=== PATIENT | female | born 1985 | race Caucasian/White ===

== ENCOUNTER 2022-10-15 10:50 | Observation (INO) | payer SELFPAY ==
[~2022-10-15] VITALS: Ht 165.1 cm; Wt 68.6 kg
[~2022-10-15 10:50] MED LIST: ANTIBIOTIC; CEFTIN 250250 MG/TAB PO; CEPHALEXIN500 M1 PO; CIPRO 500MG TA500 MG PO; LORTAB 5/500 501 TAB; MACRODANTIN50 MG PO; NORCO 325 MG-51 TAB PO; PERCOCET 5/321 UDTAB PO; PHENERGAN 25 TA25 MG PO; PREDNISONE20 MG PO; TYLENOL #3 301 UDTAB PO; ZANTAC 150150 MG PO; ZOFRAN ODT4 MG PO
[2022-10-15 11:37] LABS: COLLECTION METHOD CLEAN CATCH
[2022-10-15 11:51] LABS: MUCOUS Present (NOT PRESENT); URINE APPEARANCE Clear (CLEAR/HAZY); URINE BACTERIA Occasional /hpf (NONE SEEN); URINE COLOR Yellow (YELLOW)
[2022-10-15 11:52] LABS: PH 6.5 (5.0-8.5); URINE BLOOD 1+ (NEGATIVE); URINE GLUCOSE Negative (NEGATIVE); URINE KETONE 2+ (NEGATIVE); URINE NITRATE Positive (NEGATIVE); URINE PROTEIN(semi-quant) 2+ (NEGATIVE)
[2022-10-15 12:23] LABS: HEMOGLOBIN 13.1 g/dl (12.5-16.0); MEAN CELL VOLUME 91 fl (80.0-100.0); MEAN CORPUSCULAR HEMOGLOBIN 30 pg (27-31); MEAN CORPUSCULAR HGB CONC 34 g/dl (33.0-37.0); MEAN PLATELET VOLUME 10.2 fl (7.4-10.4); PLATELET COUNT 243 K/mm3 (130-400); RED BLOOD COUNT 4.31 M/mm3 (4.10-5.30); REDCELL DISTRIBUTION WIDTH-CV 13.8 % (11.5-14.5)
[2022-10-15 12:33] LABS: ALBUMIN 3.2 gm/dL (3.5-5.0); BILIRUBIN,TOTAL 1.6 mg/dL (0.2-1.2); C-REACTIVE PROTEIN 29.08 mg/dL (0.00-0.50); CALCIUM 9.6 mg/dL (8.4-10.2); CREATININE, serum 0.74 mg/dL (0.57-1.11); POTASSIUM 4.1 mmol/L (3.5-4.5); TOTAL PROTEIN 7.3 gm/dL (6.2-8.1)
[2022-10-15 12:34] LABS: BAND 9 % (0-10); EOSINOPHIL 1 % (0-4); LYMPHOCYTE 9 % (20.0-51.0); NEUTROPHILS 74 % (42.0-75.2); PLATELET ESTIMATE NORMAL (NORMAL)
[2022-10-15] MEDS ORDERED: TYLENOL 500MG500 MG PO (16:26)
[2022-10-15 16:50] VITALS: BP 117/63; PULSE 100; TEMP 102.9
--- NOTE | 2022-10-15 17:50 | NUR ---
PATIENT ADMITTED TO ROOM 306 FROM ED. UPON ARRIVAL, PATIENT NOTED TO BE CRYING AND STATES SHE IS HAVING SEVERE PAIN. IV MORPHINE GIVEN PER ORDER, WHICH PATIENT STATES HELPED WITH HER PAIN. PATIENT IS ALERT AND ORIENTED X4. LUNGS CTA. FEBRILE, DR. BAIG UPDATED, NEW ORDER RECEIVED FOR APAP. ON NS AND LEVAQUIN, TOLERATING WELL. ORIENTED TO ROOM AND CALL LIGHT, DENIES FURTHER NEEDS. CALL LIGHT IN REACH.
--- NOTE | 2022-10-15 19:03 | NUR ---
PATIENT STATES SHE IS A FAITH, STATES SHE CAN RECEIVE SOME BLOOD PRODUCTS BUT NOT ALL, STATES SHE IS UNSURE OF WHAT SHE IS COMFORTABLE RECEIVING AND WILL LET STAFF KNOW HER PREFERENCES SOON. TIMOTHY RN UPDATED.
[2022-10-15 19:15] VITALS: BP 97/59; PULSE 90; TEMP 98.8
[2022-10-15 23:49] VITALS: BP 94/60; PULSE 82; TEMP 98.5
[2022-10-16 03:10] VITALS: BP 99/60; PULSE 95; TEMP 99.5
[2022-10-16 07:17] VITALS: BP 103/54; PULSE 95; TEMP 100.9
[2022-10-16 08:33] LABS: HEMOGLOBIN 11.3 g/dl (12.5-16.0); MEAN CELL VOLUME 90 fl (80.0-100.0); MEAN CORPUSCULAR HEMOGLOBIN 30 pg (27-31); MEAN CORPUSCULAR HGB CONC 33 g/dl (33.0-37.0); MEAN PLATELET VOLUME 9.6 fl (7.4-10.4); PLATELET COUNT 240 K/mm3 (130-400); RED BLOOD COUNT 3.75 M/mm3 (4.10-5.30); REDCELL DISTRIBUTION WIDTH-CV 14.2 % (11.5-14.5)
[2022-10-16 08:48] LABS: HEMATOCRIT 33.9 % (37.0-47.0)
[2022-10-16 09:01] LABS: ALBUMIN 2.5 gm/dL (3.5-5.0); CALCIUM 8.7 mg/dL (8.4-10.2); CREATININE, serum 0.68 mg/dL (0.57-1.11); MAGNESIUM 1.8 mg/dL (1.6-2.6); PHOSPHOROUS 3.1 mg/dL (2.3-4.7); POTASSIUM 3.7 mmol/L (3.5-4.5)
[2022-10-16 09:03] LABS: BAND 4 % (0-10); LYMPHOCYTE 11 % (20.0-51.0); NEUTROPHILS 75 % (42.0-75.2); PLATELET ESTIMATE NORMAL (NORMAL)
--- NOTE | 2022-10-16 09:12 | NUR ---
PATIENT BLOOD SUGAR WAS 60 IN LAB THIS AM. RECHECK WAS 56. NOTIFIED PROVIDER. PROVIDER ACKNOWELDGED RESULT. PATIENT IS ASYMPTOMATIC, BUT WILL GIVE SOME JUICE TO HOLD OVER UNTIL PROVIDERS DECIDE NEXT STEPS.
--- NOTE | 2022-10-16 09:18 | NUR ---
Initial visit; Patient in a great deal of pain but was receptive to prayer this morning. Wireless Sales Associate offered prayer asking that the cause and healing for that issues occur rapidly and thoroughly.
[2022-10-16 11:30] VITALS: BP 95/59; PULSE 88; TEMP 98.6
[2022-10-16 15:15] VITALS: BP 105/66; PULSE 90; TEMP 98.3
--- NOTE | 2022-10-16 16:36 | NUR ---
SW met with patient to complete intake and discuss discharge plan. Patient lives at home with her son and daughter. She is fully independent and does not utilize any DME. She does not have a PCP. Her DPOA-HC is her eldest daughter. Discharge plan: Home
[2022-10-16 19:18] VITALS: BP 96/59; PULSE 93; TEMP 98.2
[2022-10-16 23:27] VITALS: BP 97/60; PULSE 82; TEMP 98.3
--- NOTE | 2022-10-17 02:10 | NUR ---
NURSING SHIFT ASSESSMENT COMPLETED. THE PATIENT WAS ALERT AND ORIENTED UPON ASSESMENT. THE PATIENT REPORTED CONTINUED PAIN AND DISCOMFORT TO HER RIGHT FLANK AREA. PRN PAIN MEDICATIONS BEING PROVIDED. THE PATIENT REQUESTED FRESH WATER AND IT WAS PROVIDED. NO OTHER NEEDS AT THIS TIME. CALL LIGHT AND PERSONAL BELONGINGS WITHIN REACH. BED IN LOW POSITION.
[2022-10-17 04:06] VITALS: BP 92/56; PULSE 86; TEMP 98.4
[2022-10-17 06:14] LABS: HEMOGLOBIN 11.5 g/dl (12.5-16.0); MEAN CELL VOLUME 94 fl (80.0-100.0); MEAN CORPUSCULAR HEMOGLOBIN 31 pg (27-31); MEAN CORPUSCULAR HGB CONC 33 g/dl (33.0-37.0); MEAN PLATELET VOLUME 9.9 fl (7.4-10.4); PLATELET COUNT 272 K/mm3 (130-400); RED BLOOD COUNT 3.68 M/mm3 (4.10-5.30); REDCELL DISTRIBUTION WIDTH-CV 14.3 % (11.5-14.5)
[2022-10-17 06:19] LABS: HEMATOCRIT 34.5 % (37.0-47.0)
[2022-10-17 06:43] LABS: ALBUMIN 2.3 gm/dL (3.5-5.0); CALCIUM 8.9 mg/dL (8.4-10.2); CREATININE, serum 0.7 mg/dL (0.57-1.11); PHOSPHOROUS 3.3 mg/dL (2.3-4.7); POTASSIUM 3.8 mmol/L (3.5-4.5)
[2022-10-17 07:16] LABS: BAND 4 % (0-10); LYMPHOCYTE 13 % (20.0-51.0); METAMYELOCYTE 0 % (0-0); NEUTROPHILS 78 % (42.0-75.2); PLATELET ESTIMATE NORMAL (NORMAL)
[2022-10-17 07:17] LABS: EOSINOPHIL 1 % (0-4)
[2022-10-17 07:21] VITALS: BP 92/61; PULSE 84; TEMP 98.9
[2022-10-17] MEDS ORDERED: LEVAQUIN 750MG750 M1 PO (09:03)
[2022-10-17] MEDS ORDERED: ZOFRAN ODT4 MG PO (09:05)
[2022-10-17] MEDS ORDERED: NORCO 325 MG-51 TAB PO (09:07)
[2022-10-17] MEDS ORDERED: ADVIL200 MG PO (09:08)
--- NOTE | 2022-10-17 11:06 | NUR ---
Assessment complete. A/O x4. Rates pain 03/01 to rt low back. Still c/o nausea but reports it has improved since receiving Zofran this am. at bedside. Discharge orders rec'd.
--- NOTE | 2022-10-17 11:26 | NUR ---
Discharge instructions reviewed with patient and she verbalizes understanding. INT to [facility]AC d/c'd with cath tip intact. Pt escorted to private vehicle via w/c accompanied by [facility] staff and discharged home with boyfriend.
== END 2022-10-17 11:28 | disposition home or self-care (01) ==
LOC: COL.ER 10:50 → MEDICAL 14:53
PROVIDERS: Family Medicine; ADMIT Internal Medicine
DX: N12 Tubulo-interstitial nephritis, not specified as acute or chronic (principal); D72.829 Elevated white blood cell count, unspecified; R94.5 Abnormal results of liver function studies; N39.0 Urinary tract infection, site not specified; B96.20 Unspecified Escherichia coli [E. coli] as the cause of diseases classified elsewhere
CPT/HCPCS: G0378; J0696; J1956; J2270; J2405; J7030; J7120; Q9967

== ENCOUNTER → 2022-10-22 | Outpatient (CLI) | payer SELFPAY ==
[~2022-10-22] MED LIST changes: +ADVIL200 MG PO; +LEVAQUIN 750MG750 M1 PO; +TYLENOL 500MG500 MG PO
[2022-10-22 15:03] LABS: COLLECTION METHOD CLEAN CATCH
[2022-10-22 15:09] LABS: SQUAMOUS EPITHELIAL 0-2 /hpf (0-10); URINE BACTERIA None Seen /hpf (NONE SEEN); URINE RBC None Seen /hpf (0-2); URINE WBC 0-2 /hpf (0-2)
[2022-10-22 15:12] LABS: URINE APPEARANCE Clear (CLEAR/HAZY); URINE BLOOD Negative (NEGATIVE); URINE COLOR Yellow (YELLOW); URINE GLUCOSE Negative (NEGATIVE); URINE KETONE Negative (NEGATIVE); URINE NITRATE Negative (NEGATIVE); URINE PROTEIN(semi-quant) Negative (NEGATIVE); URINE UROBILINOGEN 0.2 E.U/dL (0.2-1.0)
== END ==
LOC: COL.LAB 14:46
DX: N39.0 Urinary tract infection, site not specified (principal)